=== PATIENT | female | born 1975 ===

== ENCOUNTER 2023-05-15 11:34 | Outpatient (AMB) | payer OTHER, SELFPAY ==
--- NOTE | 2023-05-15 11:38 | A.OFFVIS_ITS ---
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 Required: No Allergies naproxen Allergy (Unknown, Verified 05/15/23 12:27) Hives Do you need a note to return to daycare/school/sports/work: No HPI MAT Intake HPI Details Patient presents for intake and evaluation for alcohol use Reports over 10 years of drinking daily Furloughed in 2019 and drinking worseend Was previously drinking in the evenings only then moved to drinking during Drinks at least one pint of vodka daily 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 [employer] History of withdrawal sx--tremor, anxiety, loose stools Denies any hx of seizures Substance Use History: ETOH started at 17 years old daily appox 10 years ago Denies any other substance use Treatment history: Denies any history of treatment However was treated for withdrawal while inpatient for hystorectomy and was prescribed Naltrexone and abstained for 3.5 months in 2021 BH History: -currently engaged in therapy every week -no medications --PCP prescribed Hydroxy zine PRN a few years back, taking the occasionally Medical History: full hystorectomy in 2021 Denies chronic health issues Denies PCP: Jayme at [facility] --last appt last week Reports liver enzymes were elevated and will be referred to GI Family HX: -siblings with GENO, including ETOH Patients goals: - in a perfect world I would like to be a social drinker Recovery Supports: -mother, older sister, ex partner, and s ome close friends Review of Systems Const Reports as per HPI, Reports difficulty sleeping, Reports lethargy, Reports malaise and Reports poor appetite Physical Exam Vital Signs: Last Vital Signs Pulse 80 05/15/23 11:43 BP 124/80 05/15/23 11:43 Pulse Ox 99 05/15/23 11:43 Oxygen Delivery Method Room Air 05/15/23 11:43 Const General: cooperative, no acute distress and anxious Orientation/consciousness: patient oriented x3 Limitations: no limitations Neuro General: patient oriented x3 Assessment & Plan Assessment & Plan (1) Alcohol use disorder, severe, dependence: Code(s): F10.20 - Alcohol dependence, uncomplicated Plan: * Naltrexone 50mg QD * Thiamine and folate * Discussed tapering alcohol very slowly to reduce risk of acute withdrawal * Risk reduction -measuring alcohol, diluting, vitamins and small meals * Gabapentin 100mg BID Medications: New naltrexone take 1/2 tab daily for 3 days, then increase to one tab daily 50 mg PO DAILY 30 tabs 0RF thiamine HCl (vitamin B1) 100 mg PO DAILY 30 tabs 3RF folic acid 1 mg PO DAILY 30 tabs 3RF gabapentin 100 mg PO BID 14 caps 0RF Coding Level of Care Code New Pt Level 4 (97178) Diagnoses Alcohol use disorder, severe, dependence F10.20
[2023-05-15 11:43] VITALS: BP 124/80; PULSE 80; O2SAT 99
== END 2023-05-15 16:04 | disposition home or self-care (01) ==
PROVIDERS: PCP Internal Medicine; Visit Provider Nurse Practitioner Psychiatric/Mental Health
DX: F10.20 Alcohol dependence, uncomplicated (principal)
CPT/HCPCS: 99204

== ENCOUNTER → 2023-05-15 11:34 | Outpatient (BNVA) | payer OTHER, SELFPAY | PROVIDERS: PCP Internal Medicine; Visit Provider Nurse Practitioner Psychiatric/Mental Health | DX: F10.20 Alcohol dependence, uncomplicated (principal) | CPT/HCPCS: 99202 ==

== ENCOUNTER 2023-06-05 13:27 | Outpatient (AMB) | payer OTHER, SELFPAY ==
[2023-06-05 13:30] VITALS: BP 140/80; PULSE 80; RESP 19; O2SAT 98
--- NOTE | 2023-06-05 13:35 | MHC.AM.SUB ---
Intake Vital Signs 06/05/23 13:30 BP 140/80 H Blood Pressure Location Lt brachial Position Sitting Respiration 19 Pulse 80 Pulse Source Pulse Oximeter Pulse Oximetry (%) 98 Oxygen Delivery Method Room Air Intake Visit Reasons: MAT Visit Allergies naproxen Allergy (Unknown, Verified 05/15/23 12:27) Hives HPI MAT Visit HPI Details Patient presents for AUD treatment follow up Has been decreasing alcohol intake--has not been formally measuring, however, notes that there is less in the bottle in the mornings than previously Still buying a bottle every 3 days Patient was considering switching over to wine. Discussed diluting vodka with juice, soda in an effort to reduce amt of alcohol intake. Has not been able to start naltrexone as pharmacy was out of stock. Verbalizing that she wants to hold off on injection for now. Has not been taking gabapentin--anxious about starting new medication. Listened to concerns and provided validation. Review of Systems Const Reports as per HPI Physical Exam Vital Signs: Last Vital Signs Pulse 80 06/05/23 13:30 Resp 19 06/05/23 13:30 BP 140/80 H 06/05/23 13:30 Pulse Ox 98 06/05/23 13:30 Oxygen Delivery Method Room Air 06/05/23 13:30 Const General: cooperative, no acute distress and anxious Orientation/consciousness: patient oriented x3 Limitations: no limitations Neuro General: patient oriented x3 Assessment & Plan Assessment & Plan (1) Alcohol use disorder, severe, dependence: Code(s): F10.20 - Alcohol dependence, uncomplicated Plan: Naltrexone 50mg QD--MA called several pharmacies and rx sent to pharmacy that had it in stock follow up 3 weeks risk reduction discussion Medications: Refilled naltrexone take 1/2 tab daily for 3 days, then increase to one tab daily 50 mg PO DAILY 30 tabs 0RF Coding Level of Care Code Est Pt Level 4 (79231) Diagnoses Alcohol use disorder, severe, dependence F10.20
== END 2023-06-05 14:00 | disposition home or self-care (01) ==
PROVIDERS: PCP Internal Medicine; Visit Provider Nurse Practitioner Psychiatric/Mental Health
DX: F10.20 Alcohol dependence, uncomplicated (principal)
CPT/HCPCS: 99214

== ENCOUNTER → 2023-06-05 13:27 | Outpatient (BNVA) | payer OTHER, SELFPAY | PROVIDERS: PCP Internal Medicine; Visit Provider Nurse Practitioner Psychiatric/Mental Health | DX: F10.20 Alcohol dependence, uncomplicated (principal) | CPT/HCPCS: 99212 ==

== ENCOUNTER 2023-06-26 11:23 | Outpatient (AMB) | payer OTHER, SELFPAY ==
--- NOTE | 2023-06-26 11:25 | A.OFFVISCC_ITS ---
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 Required: No Allergies naproxen Allergy (Unknown, Verified 06/26/23 11:25) Hives Do you need a note to return to daycare/school/sports/work: No HPI MAT Visit HPI Details Patient presents for AUD treatment follow up Prescribed Naltrexone 50mg daily--reports feeling increased irritability when taking medication Has been taking vitamins as ordered Reporting that she is drinking less - Has been diluting drinks Is buying a bottle every 3-4 days where before she was buying every 1.5 days Considering inpatient withdrawal management--undecided Has stopped taking shots in the middle of the night as a way to fall asleep Review of Systems Const Reports as per HPI Physical Exam Vital Signs: Last Vital Signs Pulse 84 06/26/23 11:30 BP 124/72 06/26/23 11:30 Pulse Ox 98 06/26/23 11:30 Oxygen Delivery Method Room Air 06/26/23 11:30 Const General: cooperative, no acute distress and anxious Orientation/consciousness: patient oriented x3 Limitations: no limitations Neuro General: patient oriented x3 Assessment & Plan Assessment & Plan (1) Alcohol use disorder, severe, dependence: Code(s): F10.20 - Alcohol dependence, uncomplicated Plan: * Has stopped naltrexone for now * follow up 3 weeks * risk reduction discussion * patient to inquire about zoom AA meetings-downloaded meeting finder during visit Coding Level of Care Code Est Pt Level 4 (07750) Diagnoses Alcohol use disorder, severe, dependence F10.20
[2023-06-26 11:30] VITALS: BP 124/72; PULSE 84; O2SAT 98
== END 2023-06-26 13:10 | disposition home or self-care (01) ==
PROVIDERS: PCP Internal Medicine; Visit Provider Nurse Practitioner Psychiatric/Mental Health
DX: F10.20 Alcohol dependence, uncomplicated (principal)
CPT/HCPCS: 99214

== ENCOUNTER → 2023-06-26 11:23 | Outpatient (BNVA) | payer OTHER, SELFPAY | PROVIDERS: PCP Internal Medicine; Visit Provider Nurse Practitioner Psychiatric/Mental Health | DX: F10.20 Alcohol dependence, uncomplicated (principal) | CPT/HCPCS: 99212 ==

== ENCOUNTER 2023-08-15 13:22 | Outpatient (AMB) | payer OTHER, SELFPAY ==
--- NOTE | 2023-08-15 13:24 | MHC.AM.SUB ---
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: No Allergies naproxen Allergy (Unknown, Verified 08/15/23 13:29) Hives Do you need a note to return to daycare/school/sports/work: No HPI MAT HPI Details Patient presents for follow up Last seen in June Drinking remains the same Reports a period of increased depression and decreased motivation During visit, she reports mood has improved some and she wishes to refocus on her recovery and decrease drinking Discussed restarting Naltrexone Patient agreeable Review of Systems Const Reports as per HPI and Reports no additional complaints Physical Exam Vital Signs: Last Vital Signs Pulse 97 08/15/23 13:29 BP 132/78 08/15/23 13:29 Pulse Ox 94 08/15/23 13:29 Oxygen Delivery Method Room Air 08/15/23 13:29 Const General: cooperative and healthy appearing Nutritional Appearance: average body habitus Orientation/consciousness: patient oriented x3 Limitations: no limitations Neuro General: patient oriented x3 Assessment & Plan Assessment & Plan (1) Alcohol use disorder, severe, dependence: Code(s): F10.20 - Alcohol dependence, uncomplicated Plan: restart naltrexone reinforced risk reduction with ongoing drinking follow up 2 weeks Medications: Refilled naltrexone take 1/2 tab daily for 3 days, then increase to one tab daily 50 mg PO DAILY 30 tabs 3RF Coding Level of Care Code Est Pt Level 4 (87084) Diagnoses Alcohol use disorder, severe, dependence F10.20
[2023-08-15 13:29] VITALS: BP 132/78; PULSE 97; O2SAT 94
== END 2023-08-15 14:10 | disposition home or self-care (01) ==
PROVIDERS: PCP Internal Medicine; Visit Provider Nurse Practitioner Psychiatric/Mental Health
DX: F10.20 Alcohol dependence, uncomplicated (principal)
CPT/HCPCS: 99214

== ENCOUNTER → 2023-08-15 13:22 | Outpatient (BNVA) | payer OTHER, SELFPAY | PROVIDERS: PCP Internal Medicine; Visit Provider Nurse Practitioner Psychiatric/Mental Health | DX: F10.20 Alcohol dependence, uncomplicated (principal) | CPT/HCPCS: 99212 ==

== ENCOUNTER 2023-08-29 13:03 | Outpatient (AMB) | payer OTHER, SELFPAY ==
--- NOTE | 2023-08-29 13:03 | A.OFFVISCC_ITS ---
Intake Intake Visit Reasons: MAT Allergies naproxen Allergy (Unknown, Verified 08/15/23 13:29) Hives HPI MAT HPI Details Patient presents for AUD treatment follow up via telehealth Reports that she feels she has decreased her alcohol intake since last visit Down to 5 shots per day. Has been working more consistently--3 hours per day. Feels she is more motivated to complete tasks at work and finds herself delaying when she starts to drink Not sleeping well--PCP ordered mirtazipine 7.5mg, however she feels groggy in the morning. Discussed administration time and encouraged to take earlier in the evening to reduce chances of feeling sedated/groggy in the morning. Patient agreeable and hopes that this will also curb nighttime drinking. 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) * will take mirtazipine earlier in evening * risk reduction discussion Medications: Changed From naltrexone take 1/2 tab daily for 3 days, then increase to one tab daily 50 mg PO DAILY 30 tabs 3RF To naltrexone 50 mg PO DAILY 30 tabs 3RF Telehealth Telehealth Location of provider rendering services: practice address Location of patient: address on file Patient Identification confirmed using: Name, : Yes Telehealth method: voice only Patient verbally consented to treatment: Yes Patient verbally consented to billing insurance company: Yes Minutes spent on Phone/Video with Pt.: 25 Coding Level of Care Code Tele Est Pt Level 4 (35309) Diagnoses Alcohol use disorder, severe, dependence F10.20
== END 2023-08-29 15:31 | disposition home or self-care (01) ==
PROVIDERS: PCP Internal Medicine; Visit Provider Nurse Practitioner Psychiatric/Mental Health
DX: F10.20 Alcohol dependence, uncomplicated (principal)
CPT/HCPCS: 99214

== ENCOUNTER → 2023-08-29 13:03 | Outpatient (BNVA) | payer OTHER, SELFPAY | PROVIDERS: PCP Internal Medicine; Visit Provider Nurse Practitioner Psychiatric/Mental Health ==

== ENCOUNTER 2023-09-19 15:11 | Outpatient (AMB) | payer OTHER, SELFPAY ==
[2023-09-19 15:21] VITALS: BP 128/84; PULSE 86; O2SAT 95
--- NOTE | 2023-09-19 15:21 | A.OFFVISCC_ITS ---
Intake Vital Signs 09/19/23 15:21 BP 128/84 Blood Pressure Location Lt brachial Position Sitting Pulse 86 Pulse Source Pulse Oximeter Pulse Oximetry (%) 95 Oxygen Delivery Method Room Air Intake Visit Reasons: MAT Allergies naproxen Allergy (Unknown, Verified 08/15/23 13:29) Hives HPI MAT HPI Details Patient presents for AUD treatment follow up Feels that drinking has decreased --5 shots a day Started Naltrexone recently Discussed dosing Discussed anger and irritability Discussed daily dosing of medication to get therapeutic effect Mirtazipine beneficial earlier in the evening Review of Systems Const Reports as per HPI Physical Exam Vital Signs: Last Vital Signs Pulse 86 09/19/23 15:21 BP 128/84 09/19/23 15:21 Pulse Ox 95 09/19/23 15:21 Oxygen Delivery Method Room Air 09/19/23 15:21 Const General: cooperative and healthy appearing Nutritional Appearance: average body habitus Orientation/consciousness: patient oriented x3 Limitations: no limitations Neuro General: patient oriented x3 Assessment & Plan Assessment & Plan (1) Alcohol use disorder, severe, dependence: Code(s): F10.20 - Alcohol dependence, uncomplicated Plan: * continue with Naltrexone * 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
== END 2023-09-19 15:53 | disposition home or self-care (01) ==
PROVIDERS: PCP Internal Medicine; Visit Provider Nurse Practitioner Psychiatric/Mental Health
DX: F10.20 Alcohol dependence, uncomplicated (principal)
CPT/HCPCS: 99214

== ENCOUNTER → 2023-09-19 15:11 | Outpatient (BNVA) | payer OTHER, SELFPAY | PROVIDERS: PCP Internal Medicine; Visit Provider Nurse Practitioner Psychiatric/Mental Health | DX: F11.20 Opioid dependence, uncomplicated (principal); Z79.899 Other long term (current) drug therapy | CPT/HCPCS: 99212 ==

== ENCOUNTER 2023-10-10 15:15 | Outpatient (AMB) | payer OTHER, SELFPAY ==
--- NOTE | 2023-10-10 15:15 | A.OFFVISCC_ITS ---
Vital Signs 10/10/23 15:17 BP 130/86 Blood Pressure Location Lt brachial Position Sitting Pulse 95 Pulse Source Pulse Oximeter Pulse Oximetry (%) 100 Oxygen Delivery Method Room Air Intake Visit Reasons: MAT Allergies naproxen Allergy (Unknown, Verified 08/15/23 13:29) Hives HPI HPI MAT: Details: Patient presents for follow up AUD-continues to cut down sleeping better started diuretic for BP last week Review of Systems Const Reports as per HPI and Reports no additional complaints Physical Exam Vital Signs: Last Vital Signs Pulse 95 10/10/23 15:17 BP 130/86 10/10/23 15:17 Pulse Ox 100 10/10/23 15:17 Oxygen Delivery Method Room Air 10/10/23 15:17 Const General: cooperative and healthy appearing Nutritional Appearance: average body habitus Orientation/consciousness: patient oriented x3 Limitations: no limitations Neuro General: patient oriented x3 Assessment & Plan Assessment & Plan (1) Alcohol use disorder, severe, dependence: Code(s): F10.20 - Alcohol dependence, uncomplicated Category: Medical Plan: * continue with Naltrexone * follow up 3 weeks * risk reduction discussion
[2023-10-10 15:17] VITALS: BP 130/86; PULSE 95; O2SAT 100
== END 2023-10-10 15:53 | disposition home or self-care (01) ==
PROVIDERS: PCP Internal Medicine; Visit Provider Nurse Practitioner Psychiatric/Mental Health
DX: F10.20 Alcohol dependence, uncomplicated (principal)
CPT/HCPCS: 99214

== ENCOUNTER → 2023-10-10 15:15 | Outpatient (BNVA) | payer OTHER, SELFPAY | PROVIDERS: PCP Internal Medicine; Visit Provider Nurse Practitioner Psychiatric/Mental Health | DX: F10.20 Alcohol dependence, uncomplicated (principal) | CPT/HCPCS: 99212 ==

== ENCOUNTER 2023-11-21 13:02 | Outpatient (AMB) | payer OTHER, SELFPAY ==
--- NOTE | 2023-11-21 13:04 | A.OFFVISCC_ITS ---
Intake Visit Reasons: MAT Allergies naproxen Allergy (Unknown, Verified 08/15/23 13:29) Hives [facility] MAT: Details: Patient seen in follow up via telehealth Over the last 2 weeks has been drinking more than usual Has psychiatrist appt today did not start medications that were prescribed by provider at previous appt initially feeling discouraged. reflected on progress and ability to continue moving forward Review of Systems Const Reports as per HPI Telehealth Telehealth Telehealth Platform: Telephone Location of provider rendering services: practice address Location of patient: address on file Patient Identification confirmed using: Name, : Yes Telehealth method: voice only Patient verbally consented to treatment: Yes Patient verbally consented to billing insurance company: Yes Minutes spent on Phone/Video with Pt.: 30 Assessment & Plan Assessment & Plan (1) Alcohol use disorder, severe, dependence: Code(s): F10.20 - Alcohol dependence, uncomplicated Category: Medical Plan: * risk reduction discussion * follow up 6 weeks * continue naltrexone
== END 2023-11-21 16:10 | disposition home or self-care (01) ==
PROVIDERS: PCP Internal Medicine; Visit Provider Nurse Practitioner Psychiatric/Mental Health
DX: F10.20 Alcohol dependence, uncomplicated (principal)
CPT/HCPCS: 99214

== ENCOUNTER → 2023-11-21 13:02 | Outpatient (BNVA) | payer OTHER, SELFPAY | PROVIDERS: PCP Internal Medicine; Visit Provider Nurse Practitioner Psychiatric/Mental Health ==

== ENCOUNTER 2024-01-01 13:02 | Outpatient (AMB) | payer OTHER, SELFPAY ==
[2024-01-01 13:14] VITALS: BP 138/94; PULSE 72; RESP 20
--- NOTE | 2024-01-01 13:14 | A.OFFVISCC_ITS ---
Vital Signs 01/01/24 13:14 BP 138/94 H Blood Pressure Location Lt brachial Position Sitting Respiration 20 Pulse 72 Pulse Source Auscultation Intake Visit Reasons: MAT Office Allergies naproxen Allergy (Unknown, Verified 08/15/23 13:29) Hives HPI HPI MAT Office: Details: Patient presents for follow up Naltrexone 50mg daily Still drinking --considering injection Just started allergy injections -weekly ultrasound 01/08 for liver Review of Systems Const Reports as per HPI and Reports no additional complaints Physical Exam Vital Signs: Last Vital Signs Pulse 72 01/01/24 13:14 Resp 20 01/01/24 13:14 BP 138/94 H 01/01/24 13:14 Const General: cooperative and healthy appearing Nutritional Appearance: average body habitus Orientation/consciousness: patient oriented x3 Limitations: no limitations Neuro General: patient oriented x3 Assessment & Plan Assessment & Plan (1) Alcohol use disorder, severe, dependence: Code(s): F10.20 - Alcohol dependence, uncomplicated Category: Medical Plan: * risk reduction discussion * follow up 4 weeks * continue naltrexone * will order vivitrol
== END 2024-01-01 13:38 | disposition home or self-care (01) ==
PROVIDERS: PCP Internal Medicine; Visit Provider Nurse Practitioner Psychiatric/Mental Health
DX: F10.20 Alcohol dependence, uncomplicated (principal)
CPT/HCPCS: 99214

== ENCOUNTER → 2024-01-01 13:02 | Outpatient (BNVA) | payer OTHER, SELFPAY | PROVIDERS: PCP Internal Medicine; Visit Provider Nurse Practitioner Psychiatric/Mental Health | DX: F10.20 Alcohol dependence, uncomplicated (principal) | CPT/HCPCS: 99212 ==

== ENCOUNTER 2024-03-05 13:26 | Outpatient (AMB) | payer OTHER, SELFPAY ==
--- NOTE | 2024-03-05 13:45 | A.OFFVISCC_ITS ---
Intake Visit Reasons: MAT/Vivitrol Injection Allergies naproxen Allergy (Unknown, Verified 08/15/23 13:29) Hives Medication List - Last Reconciled 03/05/24 by Aicha Abrams CNP clonidine HCl 0.1 mg PO BEDTIME escitalopram oxalate 5 mg PO DAILY folic acid 1 mg PO DAILY naltrexone 50 mg PO DAILY naltrexone microspheres ER (Vivitrol) 380 mg IM Q4W thiamine HCl (vitamin B1) 100 mg PO DAILY HPI HPI MAT/Vivitrol Injection: Details: Patient presents for follow up and 1st vivitrol injection Reports no change with alcohol intake Does not report an increase Has been seeing therapist weekly still Labs completed at PCP office on 01/09/24 AST 95 (156) ALT 211 (178) fatty liver elevated triglycerides CBC WNL reviewed injection goals, risks, side effects Review of Systems Const Reports as per HPI and Reports no additional complaints Physical Exam Const General: cooperative, healthy appearing, comfortable and well groomed Nutritional Appearance: average body habitus Orientation/consciousness: patient oriented x3 Limitations: no limitations Neuro General: patient oriented x3 Office Meds Vivitrol 380 mg intramuscular suspension,extended release Performing Provider: Aicha Abrams CNP Performing Location: [facility] Administered by: Emerald Silverman RN on 03/05/24 08:48 Dose Route Admin Location Dispensed Lot Number Expiration Date [facility] [employer] Rep 380 mg IM LG 380 mg [id number] 07/04/26 [id number] [employer] Assessment & Plan Assessment & Plan (1) Alcohol use disorder, severe, dependence: Code(s): F10.20 - Alcohol dependence, uncomplicated Category: Medical Plan: * tolerated injection * follow up 4 weeks * labs to be drawn prior to next injeciton Orders: Orders AMB Naltrexone Injection Patient Supplied (NC) 03/05/24 F10.20 - Alcohol dependence, uncomplicated Medications: New Vivitrol ER (naltrexone microspheres) 380 mg IM ONCE 1 ea 0RF NS F10.20 - Alcohol dependence, uncomplicated
== END 2024-03-05 14:34 | disposition home or self-care (01) ==
PROVIDERS: PCP Internal Medicine; Visit Provider Nurse Practitioner Psychiatric/Mental Health
DX: F10.20 Alcohol dependence, uncomplicated (principal)
CPT/HCPCS: 99214

== ENCOUNTER → 2024-03-05 13:26 | Outpatient (BNVA) | payer OTHER, SELFPAY | PROVIDERS: PCP Internal Medicine; Visit Provider Nurse Practitioner Psychiatric/Mental Health | DX: F10.20 Alcohol dependence, uncomplicated (principal); Z79.899 Other long term (current) drug therapy | CPT/HCPCS: 96372; 99212; J2315 ==

== ENCOUNTER 2024-12-17 14:18 | Outpatient (AMB) | payer OTHER, SELFPAY ==
[2024-12-17 14:26] VITALS: BP 136/80; PULSE 82; O2SAT 96; BMI 28.4
--- NOTE | 2024-12-17 14:26 | MHC.OFFVIS ---
Vital Signs 12/17/24 14:26 Height 5 ft 9 in Weight 192 lb BMI 28.4 BP 136/80 Pulse 82 Pulse Oximetry (%) 96 Intake Visit Reasons: MAT Allergies naproxen Allergy (Unknown, Verified 12/17/24 14:27) Hives Medication List - Last Reconciled 12/17/24 by CLINTON Escobedo clonidine HCl 0.1 mg PO BEDTIME escitalopram oxalate 5 mg PO DAILY folic acid 1 mg PO DAILY naltrexone 50 mg PO DAILY thiamine HCl (vitamin B1) 100 mg PO DAILY HPI Comments Details: The patient is a 49-year-old female with a long-standing history of alcohol use disorder, who reports consuming approximately one pint of vodka daily for over 10 years. She attempted to stop drinking last week and experienced withdrawal symptoms, including vomiting and diarrhea, without success. The patient acknowledges that her drinking began as casual, with beer and wine, but evolved into frequent vodka consumption. She reports that her health has been deteriorating, recognizing the negative impact of vodka on her liver and attributing mood swings partly to medication adjustments. The patient was previously sober for 3.5 months in 2021, where she was maintained on naltrexone but relapsed at a social event. She describes significant challenges in managing her alcohol use due to social triggers and stressors, particularly concerning the care of her household pets when considering inpatient treatment. She is engaged in treatment with her psychiatrist and primary care provider (PCP) for mood stabilization. Despite challenges, she expresses willingness to engage in an inpatient detoxification program, weighing this against logistical challenges relating to personal obligations and her pets. She is currently not actively taking naltrexone but is open to restarting and reducing her alcohol intake with eventual plans for inpatient detox when suitable care arrangements are made. Review of Systems Const All systems reviewed & are unremarkable except as noted in HPI and below Psych Reports as per HPI Physical Exam Vital Signs: Last Vital Signs Pulse 82 12/17/24 14:26 BP 136/80 12/17/24 14:26 Pulse Ox 96 12/17/24 14:26 BMI result Body Mass Index 28.4 Const General: cooperative Orientation/consciousness: patient oriented x3 HEENT Head: Yes normal to inspection Eyes General: appearance normal, both eyes and all related structures Eyelids: Yes eyelids normal Pupils: Equal, round and reactive pupils present Neck Neck: Yes normal visual inspection Resp Effort & Inspection: normal respiratory effort Cardio Rate: regular rate Rhythm: regular rhythm Neuro General: patient oriented x3 Cranial nerves: Yes Equal, round and reactive pupils present Psych Appearance: well kempt Mental Status: mental status grossly normal Speech and movement: Normal speech and movement present Affect: Labile affect present Attitude: cooperative Thought process: Normal thought process present Thought content: Normal thought content present Insight: Good insight present (Psych) Judgement: Good judgement present (Psych) Assessment & Plan Assessment & Plan (1) Alcohol use disorder, severe, dependence: Code(s): F10.20 - Alcohol dependence, uncomplicated Category: Medical Plan Naltrexone 50 mg daily was prescribed to manage cravings and prevent relapse, pending liver function tests. The patient is advised on reducing vodka consumption and considering an inpatient detox program. Thiamine 100 mg and folic acid 1 mg daily. Orders: Orders Liver Panel Today F10.20 - Alcohol dependence, uncomplicated Medications: Changed From naltrexone 50 mg PO DAILY 30 tabs 3RF To naltrexone Take one tablet by mouth daily. 50 mg PO DAILY 14 tabs 0RF Refilled thiamine HCl (vitamin B1) 100 mg PO DAILY 30 tabs 3RF folic acid 1 mg PO DAILY 30 tabs 3RF Patient Instructions: - Take naltrexone 50 mg daily, thiamine 100 mg daily, and folic acid 1 mg daily. - Reduce vodka intake gradually. - Avoid sudden alcohol cessation without medical supervision due to risks of withdrawal symptoms. - Arrange for liver function tests as soon as possible. - Speak to your partner about plans for eventual inpatient detox to coordinate. - Return for a follow-up appointment in two weeks to reassess the treatment plan. - Call with questions, concerns, or to report side effects. Scribe Plan - Not visible on output: Patient was informed and verbally consented to the use of an ambient scribe for clinical note documentation during this visit. Coding Level of Care Code New Pt Level 4 (40750) Diagnoses Alcohol use disorder, severe, dependence F10.20 Time Spent (min) 45 Comment Chart review and education.
--- OUTSIDE RECORDS SUMMARY | 2024-12-17 14:59 | XMS_ITS | Clinical Summary ---
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 3 Active azelaic acid (FINACEA) 15 % gel APPLY TO FACE TWICE A DAY 4 Active cloNIDine (CATAPRES) 0.1 mg tablet TAKE 1 TABLET BY MOUTH ONCE A DAY FOR ANXIETY 4 Active clotrimazole (LOTRIMIN) 1 % cream Apply 1 Application topically 2 (two) times a day. 4 025 Active escitalopram (LEXAPRO) 5 mg tablet TAKE 1 TABLET BY MOUTH ONCE A DAY FOR DEPRESSION, WORRY, INTRUSIVE THOUGHTS 4 Active hydrOXYzine pamoate (VISTARIL) 25 mg capsule Take 1 Capsule by mouth daily as needed for Itching or Anxiety. 4 Active ketoconazole (NIZORAL) 2 % shampoo Lather, soak for 5 minutes, then rinse twice weekly. 3 Active naltrexone microspheres (VivitroL) 380 mg suspension,extend ed rel recon intramuscular suspension Historic 4 Active mirtazapine (REMERON) 7.5 mg tablet Take 0.5 tablets (3.75 mg total) by mouth at bedtime. at bedtime 4 Active EPINEPHrine (EPIPEN) 0.3 mg/0.3 mL injectionIndicati ons:Allergy, unspecified, subsequent encounter INJECT 0.3 MG INTO THE MUSCLE NEEDED FOR OTHER (ANAPHYLACTIC REACTION). 2 each 5 Active thiamine 100 mg tablet TAKE 1 TABLET BY MOUTH EVERY DAY 90 tablet 1 5 Active thiamine 100 mg tablet Take 1 tablet (100 mg total) by mouth 1 (one) time each day. Active folic acid (FOLVITE) 1 mg tablet TAKE 1 TABLET BY MOUTH EVERY DAY 90 tablet 5 Active fluticasone furoate (Arnuity Ellipta) 100 mcg/actuation blister with device inhalerIndication s:Mild persistent asthma, unspecified whether complicated Inhale 1 puff by mouth 1 (one) time each day. 1 each 5 026 Active albuterol HFA (Ventolin HFA) 90 mcg/actuation inhalerIndication s:Mild persistent asthma, unspecified whether complicated Inhale 2 puffs by mouth every 6 (six) hours if needed for wheezing. 6.7 g 11 5 026 Active Active Problems Problem Noted Date Diagnosed Date Primary hypertension 09/24/2023 Overview (04/16/2024): Last Assessment & Plan: Patient's blood pressure is poorly controlled with a reading today of 146/92. I will add amlodipine 5 mg once a day. She is following regularly with her primary care provider and has an appointment next week. Would recommend continuing to titrate medical therapy for the management of her hypertension as this may be contributing to her shortness of breath. Dyspnea on exertion 04/03/2023 Overview (04/16/2024): Last Assessment & Plan: Patient has history of exertional shortness of breath and recently underwent cardiac evaluation with a stress echocardiogram which did not reveal any evidence of ischemia or infarction. Shortness of breath could be related to abdominal ascites. She has an appointment with gastroenterology in the near future. She continues to follow closely with her primary care provider. She was seen by pulmonary and had a pulmonary function test which was normal. It is possible that her elevated blood pressure could be contributing to her torsional shortness of breath and I have given her additional medical therapy today for the management of her hypertension. Hepatic cyst 09/18/2022 Overview (04/16/2024): Two, both anechoic, < 4 cm on us 09/2022 Adnexal mass 12/30/2021 Overview (04/16/2024): She underwent exploratory aparotomy, total abdominal hysterectomy and bilateral salpingo-oophorectomy (10/26/2021). Her pathology demonstrated benign leiomyoma. There was no evidence of malignancy. Chest pain 12/30/2021 Overview (04/16/2024): Last Assessment & Plan: Patient had been seen in the emergency room for an episode of chest discomfort back in September she states that she has had no further episodes of pain or discomfort she has minimal risk factors for coronary disease and without recurrent symptoms I see no need for stress testing at this time I would consider it again if she develops change in her symptoms. Hypokalemia 12/30/2021 Palpitations 12/30/2021 Overview (04/16/2024): Last Assessment & Plan: Patient denies any recurrent palpitations at this time. Ascending aorta dilatation (CMS/HCC V24) 022 Overview (04/16/2024): Last Assessment & Plan: Patient has history of an ascending aorta measuring 4.8 cm on last echocardiogram. This was stable and unchanged from previous. Will plan on updating an echocardiogram in 1 year. Alcohol abuse 10/17/2021 Overview (04/16/2024): Last Assessment & Plan: Patient encouraged to continue with her efforts to abstain from alcohol. Fatty liver 07/13/2021 Overview (04/16/2024): CT Abdomen/Pelvis 07/13/21 Effusion of left knee 02/17/2020 Internal derangement of left knee 02/17/2020 Anxiety 08/06/2014 Depression 10/18/2009 Varicose vein of leg 10/18/2009 Encounters Date Type Department Care Team Description 11/18/2024 3:30 PM EDT Ancillary Procedure Pulmonolgy - [place] [address] [facility] [address] [place] [phone] Dyspnea on exertion 11/18/2024 3:00 PM EDT [facility] [address] [phone] Swathi Callahan MD Ex-smoker (Primary Dx); Dyspnea on exertion; Mild persistent asthma, unspecified whether complicated 11/17/2024 Telephone Internal Medicine - [place] [address] [place] [address] Sandra Schmidt MA Results 11/13/2024 8:40 AM EDT - 11/13/2024 11:59 PM EDT Hospital Encounter Xray - [place] [address] [place] [address] Dyspnea on exertion Discharge Disposition: Home or Self Care 11/13/2024 8:31 AM EDT - 11/13/2024 11:59 PM EDT Hospital Encounter Ultrasound - [place] [address] [place] [address] Elevated LFTs Discharge Disposition: Home or Self Care 10/22/2024 1:00 PM EDT Telemedicine Internal Medicine - [place] [address] [place] [address] Dakotah Unger MD Dyspnea on exertion (Primary Dx); Ascending aorta dilatation (CMS/HCC V24); Alcohol abuse; Depression, unspecified depression type; Elevated LFTs 10/22/2024 Telephone Internal Medicine - [place] [address] [place] [address] Dakotah Unger MD Appointment from Last 3 Months Immunizations Name Administration Dates Next Due Influenza Quadravalent, MDCK , 0.5ml, preservative free (Flucelvax) 6mo and older 08/17/2020,08/08/2019 Influenza, Unspecified 02/17/2016 Td Tetanus diptheria (Tdvax) 7yo and older 11/02 Tdap Tetanus diptheria acell ular pertussis (Boostrix; Adacel) 7yo and older 10/19/2016 Medical History Medical History Date Comments Anxiety state, unspecified DX:An xiety state, unspecified Varicose veins 10/18/2009 DX:Varicose vein s Depression 10/18/2009 DX:Depression Alcohol abuse 10/17/2021 DX:Alcohol abuse Pelvic mass 10/17/2021 DX:Pelvic mass Ascending aorta dilatation ( CMS/HCC V24) 11/09/2021 DX:Ascending aorta dilatatio n (HCC) Hepatic cyst 09/18/2022 DX:Hepatic cyst; COMMENT: Two, both anechoic, < 4 cm on us 09/2022 Adnexal mass 12/30/2021 DX:Adnexal mass Elevated liver enzymes DX:Elevat ed liver enzymes History of alcohol consumption D X:History of alcohol consumption Fatty liver DX:Fatty liver Elevated LFTs DX:Elevated LFTs Straining with stools DX:Straini ng with stools Fatty liver 07/13/2021 Primary hypertension 09/24/2023 Family History Medical History Relation Name Comments Breast cancer Aunt 1 m aunt maternal Lung cancer Aunt 2 Other: murdered Brother 1 1996, Leukemia Father 36 Other: unknown Mother Colon cancer Neg Hx Ovarian cancer Neg Hx Relation Name Status Comments Aunt 1 m aunt Alive Aunt 2 Brother 1 (Age 26) murdered 1 997 Brother 2 Alive x3, Bipolar, He p C Father (Age 32) Leukemia ( when pt was age 12) Mother Alive depression Sister 1 Alive Criselda, healthy Sister 2 Alive Selene, depres alex Social History Tobacco Use Types Packs/Day Years Used Date Smoking Tobacco: Former Passive Smoke Exposure: Past Smokeless Tobacco: Never Alcohol Use Standard Drinks/Week Comments Yes 0 (1 standard drink = 0.6 oz pur e alcohol) Living Situation Answer Date Recorded What is your living situation? 0 10/22/2024 Comments Unknown Sex and Gender Information Value Date Recorded Sex Assigned at Not on file Legal Sex Female 1:46 AM EST Gender Identity Not on file Sexual Orientation Not on file Obstetrics History Last Filed Vital Signs Vital Sign Reading Time Taken Comments Blood Pressure 109/85 11/18/2024 3:23 PM EDT Pulse 85 11/18/2024 3:23 PM EDT Temperature 35.3 C (95.6 F) 11/18/2024 3:23 PM EDT Respiratory Rate 16 11/18/2024 3:23 PM EDT Oxygen Saturation 100% 11/18/2024 3:23 PM EDT Inhaled Oxygen Concentration - - Weight 87.5 kg (193 lb) 11/18/2024 3:23 PM EDT Height 175.3 cm (5' 9 ) 11/18/2024 3:23 PM EDT Body Mass Index 28.5 11/18/2024 3:23 PM EDT Plan of Treatment Upcoming Encounters Date Type Department Care Team (Late st Contact Info) Description 01/01/2025 2:40 PM EDT Office Visit Gastroenterology - [place] [address] [place] [address] Christiane Barahoan PA [address] [place] [address] 01/14/2025 2:40 PM EDT Appointment Radiology Department [address] [phone] 02/03/2025 9:00 AM EDT Ancillary Procedure [facility] Cardiology [facility] [address] [place] [address] 04/10/2025 7:40 AM EST Office Visit [facility] - [facility] [address] [place] [address] Karime Boothe NP [address] [place] [address] [address] [place] [address] 05/21/2025 2:30 PM EST Office Visit Pulmonolgy - [place] [address] [phone] Swathi Callahan MD 175 [facility] [address] [place] [address] Health Maintenance Due Date Last Done Comments Hepatitis A Vaccines (1 of 2 - Risk 2-dose series) 01/12/1995 Hepatitis B Vaccines (1 of 3 - 19+ 3-dose series) 01/12/1995 Pneumococcal Vaccine: Pediatrics (0 to 5 Years) and At-Risk Patients (6 to 49 Years) (1 of 2 - PCV) 01/12/1995 Cervical Cancer Screening: P ap Smear 08/06/2015 08/05/2012, 08/05/2012 HIV Screening 05/13/2022 Hepatitis C Screening 05/13/2022 COVID-19 Vaccine (2023-2 5 season) 2024 11/10/2020, 10/11/2020 Influenza Vaccine (#1) 2025 , 08/08/2019, 02/17/2016 Breast Cancer Screening 07/13/2025 07/13/19, 11/30/2016 Social Influencers of Health Screening 10/22/2025 10/22/2024 Hypertension/CHF/CAD Annual BMP Blood Test 11/13/2025 11/13/2024, 01/09/2024, 10/26/2023 DTaP,Tdap,and Td Vaccines (3 - Td or Tdap) 10/19/2026 10/19/2016, 11/02/2005 Cholesterol Screening (Lipid Panel) 01/08/2029 01/09/2024, 10/26/2023 Colorectal Cancer Screening: Colonoscopy 01/28/2034 01/29/2024 Depression Screening Completed 10/22/2024 HIB Vaccines Aged Out No longer eligi ble based on patient's age to complete this topic HPV Vaccines Aged Out No longer eligi ble based on patient's age to complete this topic IPV Vaccines Aged Out No longer eligi ble based on patient's age to complete this topic MMR Vaccines Aged Out No longer eligi ble based on patient's age to complete this topic Meningococcal ACWY Vaccine Aged Out N o longer eligible based on patient's age to complete this topic Meningococcal B Vaccine Aged Out No l onger eligible based on patient's age to complete this topic RSV Immunization Patients Under 20 months Aged Out No longer eligible b ased on patient's age to complete this topic Varicella Vaccines Aged Out No longer eligible based on patient's age to complete this topic Procedures Procedure Name Priority Date/Time Associated Diagnosis Comments PULMONARY FUNCTION TESTING Routine 11/18/2024 4:35 PM EDT Dyspnea on exertion US ABDOMEN LIMITED Routine 11/13/2024 11 :00 AM EDT Elevated LFTs CBC WITH AUTO DIFFERENTIAL Routine 11/13/2024 9:20 AM EDT Dyspnea on exertion COMPREHENSIVE METABOLIC PANEL Routine 11/13/2024 9:20 AM EDT Alcohol abuse D-DIMER Routine 11/13/2024 9:20 AM EDT Dyspnea on exertion B-TYPE NATRIURETIC PEPTIDE Routine 11/13/2024 9:20 AM EDT Dyspnea on exertion CBC AND DIFFERENTIAL Routine 11/13/2024 9:20 AM EDT Dyspnea on exertion XR CHEST 2 VIEWS Routine 11/13/2024 8:46 AM EDT Dyspnea on exertion HM COLONOSCOPY Routine 01/29/2024 SCREENING MAMMOGRAPHY BI 2-VIEW BREAST INC CAD Routine 07/13/2023 4:18 PM EST Other specified conditions associated with female genital organs and menstrual cycle HM HPV Routine 08/05/2012 from Last 3 Months or Most Recently Relevant to Health Maintenance Results * Pulmonary function testing: Carbon Monoxide Diffusing Capacity, Nitrogen Wash Out, Spirometry with Bronchodilator, Vital Capacity Test (11/18/2024 4:35 PM EDT) Impressions Hoda Powell MD - 11/18/2024 4:35 PM EDT 11/18/2024 Spirometry FEV1 is 66% predicted, FVC is 68% predicted, FEV1/FVC ratio is normal, there is significant improvement in the FEV1 post bronchodilators Lung volumes TLC is 90% predicted, RV/TLC is 119% predicted Diffusion DLCO 64% predicted, DLCO/VA is also 64% predicted In summary, this pulmonary function test shows moderate obstructive defect Walked six minutes covering (152m/500ft) without Leg Fatigue, Mild SOB Lowest oxygen saturation was 98%. Returned to PFT lab for Rest & Recovery. After 1 min RaSpO2 = 98% HR = 70; After 2 min RaSpO2 = 99% HR = 64. No indication for supplemental Oxygen for activity. us Swathi Callahan MD PFT ORDERABLES Final Result * US Abdomen Limited (11/13/2024 11:00 AM EDT) Anatomical Region Laterality Modality Body Ultrasound 11/13/2024 1:18 PM EDT Impressions 11/13/2024 1:30 PM EDT Chronic echogenic hepatic parenchyma which is commonly seen with steatosis and can also be present with chronic hepatocellular disease. Multiple hepatic cysts. POS [id number] -------- FINAL REPORT -------- Dictated By: Heaven Chapman Dictated Date: 11/13/2024 13:18 ET Assigned Physician: Heaven Chapman Reviewed and Electronically Signed By: Heaven Chapman Signed Date: 11/13/2024 13:30 ET Workstation ID: [id number] Transcribed By: Self Edit Transcribed Date: 11/13/2024 13:18 ET Narrative 11/13/2024 1:30 PM EDT EXAM: Abdomen ultrasound, limited HISTORY: Elevated liver function tests. History of alcohol use. COMPARISON: 01/09/2024 FINDINGS: Liver: Normal in size measuring 14.9 cm in craniocaudad extent. Parenchyma is again noted to be echogenic. Multiple cysts again noted. The larger cysts which are located in the left hepatic lobe measure 4.1 x 3.8 x 3.3 cm with a thin septation and 2.1 x 2.0 x 1.8 cm. Gallbladder/Biliary Tree: Gallbladder lumen appears clear without wall thickening or pericholecystic fluid. No intra or extrahepatic biliary ductal dilatation. The common bile duct measures 0.4 cm. Pancreas: No abnormality detected. Right kidney: Normal in size measuring 11.6 cm in craniocaudad extent. No hydronephrosis, focal lesions, or shadowing stones. Vasculature: Hepatopedal flow in the main portal vein. Procedure Note Heaven Chapman MD - 11/13/2024 EXAM: Abdomen ultrasound, limited HISTORY: Elevated liver function tests. History of alcohol use. COMPARISON: 01/09/2024 FINDINGS: Liver: Normal in size measuring 14.9 cm in craniocaudad extent.Parenchyma is again noted to be echogenic. Multiple cysts again noted.The larger cysts which are located in the left hepatic lobe measure 4.1 x3.8 x 3.3 cm with a thin septation and 2.1 x 2.0 x 1.8 cm. Gallbladder/Biliary Tree: Gallbladder lumen appears clear without wallthickening or pericholecystic fluid. No intra or extrahepatic biliaryductal dilatation. The common bile duct measures 0.4 cm. Pancreas: No abnormality detected. Right kidney: Normal in size measuring 11.6 cm in craniocaudad extent. Nohydronephrosis, focal lesions, or shadowing stones. Vasculature: Hepatopedal flow in the main portal vein. IMPRESSION: Chronic echogenic hepatic parenchyma which is commonly seen with steatosisand can also be present with chronic hepatocellular disease. Multiplehepatic cysts. POS [id number] -------- FINAL REPORT -------- Dictated By: Heaven Chapman Dictated Date: 11/13/2024 13:18 ET Assigned Physician: Heaven Chapman Reviewed and Electronically Signed By: Heaven Chapman Signed Date: 11/13/2024 13:30 ET Workstation ID: [id number] Transcribed By: Self Edit Transcribed Date: 11/13/2024 13:18 ET us Dakotah Unger MD IMG US PROCEDURES Final R esult * (ABNORMAL) CBC auto differential (11/13/2024 9:20 AM EDT) [facility] WBC 6.5 4.8 - 10.8 K/mcL LAB HEMETOLOGY METHOD 11/13/2024 11:41 AM [facility] RBC 4.20 3.80 - 4.80 M/mcL LAB HEMETOLOGY METHOD 11/13/2024 11:41 AM [facility] Hemoglobin 12.5 11.5 - 16.0 g/dL LAB HEMETOLOGY METHOD 11/13/2024 11:41 AM [facility] Hematocrit 39.4 35.0 - 47.0 % LAB HEMETOLOGY METHOD 11/13/2024 11:41 AM [facility] MCV 92.9 79.0 - 98.0 FL LAB HEMETOLOGY METHOD 11/13/2024 11:41 AM [facility] MCH 29.5 27.0 - 32.0 pcg LAB HEMETOLOGY METHOD 11/13/2024 11:41 AM [facility] MCHC 31.7(L) 32.0 - 37.0 g/dL LAB HEMETOLOGY METHOD 11/13/2024 11:41 AM [facility] RDW 13.6 11.0 - 15.0 % LAB HEMETOLOGY METHOD 11/13/2024 11:41 AM [facility] Platelets 229 130 - 400 K/mcL LAB HEMETOLOGY METHOD 11/13/2024 11:41 AM [facility] MPV 11.9(H) 7.0 - 11.0 FL LAB HEMETOLOGY METHOD 11/13/2024 11:41 AM [facility] NRBC 0.0 <1.0 % LAB HEMETOLOGY METHOD 11/13/2024 11:41 AM [facility] NRBC Absolute 0.00 <0.10 K/[facility] LAB HEMETOLOGY METHOD 11/13/2024 11:41 AM [facility] Neutrophils Relative 59.9 % LAB HEMETOLOGY METHOD 11/13/2024 11:41 AM [facility] Lymphocytes Relative 28.6 % LAB HEMETOLOGY METHOD 11/13/2024 11:41 AM [facility] Monocytes Relative 6.5 % LAB HEMETOLOGY METHOD 11/13/2024 11:41 AM [facility] Eosinophils Relative 3.4 % LAB HEMETOLOGY METHOD 11/13/2024 11:41 AM [facility] Basophils Relative 1.1 % LAB HEMETOLOGY METHOD 11/13/2024 11:41 AM [facility] Immature Granulocytes Relative 0.5 % LAB HEMETOLOGY METHOD 11/13/2024 11:41 AM [facility] Neutrophils Absolute 3.91 1.50 - 7.00 K/mcL LAB HEMETOLOGY METHOD 11/13/2024 11:41 AM [facility] Lymphocytes Absolute 1.86 1.00 - 5.00 K/mcL LAB HEMETOLOGY METHOD 11/13/2024 11:41 AM [facility] Monocytes Absolute 0.42 0.20 - 1.00 K/mcL LAB HEMETOLOGY METHOD 11/13/2024 11:41 AM [facility] Eosinophils Absolute 0.22 0.00 - 0.50 K/mcL LAB HEMETOLOGY METHOD 11/13/2024 11:41 AM [facility] Basophils Absolute 0.07 0.00 - 0.20 K/mcL LAB HEMETOLOGY METHOD 11/13/2024 11:41 AM [facility] Immature Granulocytes Absolute 0.03 0.00 - 0.03 K/mcL LAB HEMETOLOGY METHOD 11/13/2024 11:41 AM [facility] Blood Venous blood specimen / Unknown Venipuncture / Unknown 11/13/2024 9:20 AM EDT 11/13/2024 9:20 AM EDT us Dakotah Unger MD LAB BLOOD ORDERABLES Ángela l Result Performing Organization Address [facility] Co de Phone Number [facility] [address] [place] [address], * D-Dimer (11/13/2024 9:20 AM EDT) D-Dimer, Quant (D-DU) <150 <=230 ng/mL DDU LAB COAGULATION METHOD 11/13/2024 12:00 PM EDT [facility] Blood Venous blood specimen / Unknown Venipuncture / Unknown 11/13/2024 9:20 AM EDT 11/13/2024 9:20 AM EDT Narrative [facility] - 11/13/2024 12:00 PM EDT D-Dimer <230 ng/mL (D-Dimer units) is the threshold for exclusion of DVT/PE. D-Dimer may be elevated in: Critically ill, severely infected, trauma patients, DIC, acute CVA, acute PA, unstable angina, AF, old age, , and smoking. D-Dimer may be decreased with: Initiation of heparin therapy and oral anticoagulants. us Dakotah Unger MD LAB BLOOD ORDERABLES Ángela l Result Performing Organization Address [facility] Co de Phone Number [facility] [address] [place] [address], [place] [phone] * B-type natriuretic peptide (11/13/2024 9:20 AM EDT) BNP 16 <=100 pcg/mL LAB CHEMISTRY METHOD 11/13/2024 12:35 PM EDT [facility] Blood Venous blood specimen / Unknown Venipuncture / Unknown 11/13/2024 9:20 AM EDT 11/13/2024 9:20 AM EDT Dakotah Unger MD LAB BLOOD ORDERABLES Ángela chris Result [facility] [address] [place] [address], [place] [phone] * (ABNORMAL) Comprehensive metabolic panel (11/13/2024 9:20 AM EDT) Pathologist [facility] Sodium 136 133 - 145 mmol/L LAB CHEMISTRY METHOD 11/13/2024 12:09 PM [facility] Potassium 3.6 3.5 - 5.5 mmol/L LAB CHEMISTRY METHOD 11/13/2024 12:09 PM [facility] Chloride 100 96 - 110 mmol/L LAB CHEMISTRY METHOD 11/13/2024 12:09 PM [facility] CO2 25 21 - 32 mmol/L LAB CHEMISTRY METHOD 11/13/2024 12:09 PM [facility] Anion Gap 11 3 - 11 LAB CHEMISTRY METHOD 11/13/2024 12:09 PM [facility] Glucose 110(H) 70 - 100 mg/dL LAB CHEMISTRY METHOD 11/13/2024 12:09 PM [facility] BUN 8 5 - 25 mg/dL LAB CHEMISTRY METHOD 11/13/2024 12:09 PM [facility] Creatinine 0.80 0.50 - 1.10 mg/dL LAB CHEMISTRY METHOD 11/13/2024 12:09 PM [facility] eGFR 91 >=60 mL/min/1. 73m2 LAB CHEMISTRY METHOD 11/13/2024 12:09 PM [facility] Comment:Calculation based on the Chronic Kidney Disease Epidemiology Collaboration (CKD-EPI) equation refit without adjustment for race. BUN/Creatinine Ratio 10.0 LAB CHEMISTRY METHOD 11/13/2024 12:09 PM EDT [facility] Calcium 9.3 8.5 - 10.5 mg/dL LAB CHEMISTRY METHOD 11/13/2024 12:09 PM [facility] AST (SGOT) 453(H) 10 - 42 unit/L LAB CHEMISTRY METHOD 11/13/2024 12:09 PM [facility] ALT (SGPT) 167(H) 10 - 60 unit/L LAB CHEMISTRY METHOD 11/13/2024 12:09 PM T [facility] Alkaline Phosphatase 182(H) 42 - 121 unit/L LAB CHEMISTRY METHOD 11/13/2024 12:09 PM [facility] Total Protein 8.4(H) 6.0 - 8.0 g/dL LAB CHEMISTRY METHOD 11/13/2024 12:09 PM [facility] Albumin 4.0 3.2 - 5.0 g/dL LAB CHEMISTRY METHOD 11/13/2024 12:09 PM [facility] Total Bilirubin 1.2 0.0 - 1.4 mg/dL LAB CHEMISTRY METHOD 11/13/2024 12:09 PM [facility] Blood Venous blood specimen / Unknown Venipuncture / Unknown 11/13/2024 9:20 AM EDT 11/13/2024 9:20 AM EDT us Dakotah Unger MD LAB BLOOD ORDERABLES Ángela l Result [facility] [address] [place] [address], * XR Chest 2 Views (11/13/2024 8:46 AM EDT) Anatomical Region Laterality Modality Body Radiographic Kymberly ging 11/13/2024 10:3 5 AM EDT Impressions 11/13/2024 10:38 AM EDT No acute cardiopulmonary process. -------- FINAL REPORT -------- Dictated By: Papito Faulkner Dictated Date: 11/13/2024 10:35 ET Assigned Physician: Papito Faulkner Reviewed and Electronically Signed By: Papito Faulkner Signed Date: 11/13/2024 10:38 ET Workstation ID: [id number] Transcribed By: Self Edit Transcribed Date: 11/13/2024 10:35 ET Narrative 11/13/2024 10:38 AM EDT HISTORY: dyspnea on exertion TECHNIQUE: PA and lateral radiographs of the chest COMPARISON: Chest radiograph from 07/03/2023 FINDINGS: There is a normal cardiomediastinal silhouette. The lungs are clear. The osseous structures are intact. Procedure Note Papito Faulkner MD - 11/13/2024 HISTORY: dyspnea on exertion TECHNIQUE: PA and lateral radiographs of the chest COMPARISON: Chest radiograph from 07/03/2023 FINDINGS: There is a normal cardiomediastinal silhouette. The lungs are clear. Theosseous structures are intact. IMPRESSION: No acute cardiopulmonary process. -------- FINAL REPORT -------- Dictated By: Papito Faulkner Dictated Date: 11/13/2024 10:35 ET Assigned Physician: Papito Faulkner Reviewed and Electronically Signed By: Papito Faulkner Signed Date: 11/13/2024 10:38 ET Workstation ID: [id number] Transcribed By: Self Edit Transcribed Date: 11/13/2024 10:35 ET Dakotah Unger MD IMG XR PROCEDURES Final R esult * Hm Colonoscopy (01/29/2024) Colonoscopy no interpretation , abstracted Anatomical Region Laterality Modality Other Historical Provider HEALTH MAINTENANCE Final Result * SCREENING MAMMOGRAPHY BI 2-VIEW BREAST INC CAD (07/13/2023 4:18 PM EST) Anatomical Region Laterality Modality Radiographic Kymberly ging 06/05/2023 11:2 3 AM EST Narrative 07/14/2023 3:32 PM EST This is a summary report. The complete report is available in the patient's medical record. If you cannot access the medical record, please contact the sending organization for a detailed fax or copy. Full field digital screening 2D C views and tomosynthesis mammography, reviewed with CAD and compared to previous. The breast tissue is heterogeneously dense, limiting sensitivity. No suspicious mass, architectural distortion or suspicious calcifications are identified. IMPRESSION: : Dense breast tissue, limiting the sensitivity of mammography. No mammographic evidence of malignancy. BIRADS 1-Negative; N. 5 year breast cancer risk assessment 0.6 % Lifetime breast cancer risk assessment 6.7 % Breast cancer risk category Low (<15%) Procedure Note Laurie Cox MD - 01/21/2024 This is a summary report. The complete report is available in thepatient's medical record. If you cannot access the medical record, pleasecontact the sending organization for a detailed fax or copy. Full field digital screening 2D C views and tomosynthesis mammography,reviewed with CAD and compared to previous. The breast tissue isheterogeneously dense, limiting sensitivity. No suspicious mass,architectural distortion or suspicious calcifications are identified. IMPRESSION: : Dense breast tissue, limiting the sensitivity of mammography. Nomammographic evidence of malignancy. BIRADS 1-Negative; N. 5 year breast cancer risk assessment 0.6 % Lifetime breast cancer risk assessment 6.7 % Breast cancer risk category Low (<15%) Dakotah Unger MD IMG XR PROCEDURES Final R esult * Cervical Cancer Screening: HPV (08/05/2012) Cervical Cancer Screening: HPV no interpretation , abstracted Historical Provider HEALTH MAINTENANCE Final Result from Last 3 Months or Most Recently Relevant to Health Maintenance Insurance [facility] Care Teams Nuclear [employer] Operator Relationship Specialty Start Date End Date Dakotah Unger MD [address] [place] [id number] PCP - General Internal Medicine 04/07/20
== END 2024-12-17 14:59 | disposition home or self-care (01) ==
LOC: HO.HCC 14:18
PROVIDERS: PCP Internal Medicine; Visit Provider Clinical Nurse Specialist Psychiatric/Mental Health
DX: F10.20 Alcohol dependence, uncomplicated (principal)
CPT/HCPCS: 99204

== ENCOUNTER 2024-12-17 14:18 | Outpatient (REF) | payer OTHER, SELFPAY ==
[2024-12-17 15:59] LABS: Alanine Aminotransferase 114 U/L (0-31); Albumin Level 4.7 g/dL (3.5-5.0); Alkaline Phosphatase 157 U/L (39-117); Aspartate Amino Transferase 219 U/L (5-31); Total Protein 8.3 g/dL (6.5-8.0)
== END 2024-12-17 14:19 | disposition home or self-care (01) ==
LOC: HO.LAB 14:18
PROVIDERS: PCP Internal Medicine; Visit Provider Clinical Nurse Specialist Psychiatric/Mental Health
DX: F10.20 Alcohol dependence, uncomplicated (principal)
CPT/HCPCS: 36415; 80076